=== PATIENT | female | born 1965 | race American Indian/Alaskan Native ===

== ENCOUNTER 2018-02-03 10:02 | Day surgery (SDC) | payer OTHER ==
[2018-01-21 00:26] VITALS: BMI 25.1
--- NOTE | 2018-02-03 12:01 | CP.SDSHP ---
Same Day Surgery H & P - History Proposed Procedure: COLONSCOPY Pre-Op Diagnosis: SEE NOTES - Previous Medical/Surgical History Cardiac: Hypertension Pulmonary: Asthma Misc: Other Pain: 2.Mild Pain - Allergies Allergies: Allergies No Known Allergies Allergy (Verified 02/03/18 10:30) - Physical Exam General Appearance: N Vital Signs: Vital Signs 02/03/18 02/03/18 10:20 10:38 Temperature 97.8 F Pulse Rate 80 80 Respiratory 20 Rate Blood Pressure 105/74 O2 Sat by Pulse 100 Oximetry Mental Status: Alert & Oriented x3 Neuro: WNL Heart: Other Lungs: Other GI: WNL - {Optional Preform as Required} Breast: WNL Abdomen: WNL Rectal: Other Integument: WNL : WNL Ortho: Other ENT: WNL - Impression Pt. Evaluated Today:Candidate for Anesthesia & Procedure: Yes - Date & Time Time: 12:00 Short Stay Discharge - Short Stay Discharge Admitting Diagnosis/Reason for Visit: SCREENING Disposition: HOME/ ROUTINE Referrals: Joellen Boone MD [Primary Care Provider] -
[2018-02-03] MEDS ORDERED: Midazolam 2 MG/2 ML VIAL ONE (12:04)
[2018-02-03] MEDS ORDERED: Propofol 10 mg/ml Inj (20 ML) ONE (12:04)
[2018-02-03] MEDS ORDERED: Glucagon Recombinant 1 mg Inj ONE (12:17)
[2018-02-03] MEDS ORDERED: Belladonna-Phenobarbital PO ONE (13:05)
[2018-02-03 14:31] VITALS: BP 110/67; PULSE 67; RESP 16; TEMP 97.1; O2SAT 100
== END 2018-02-03 14:15 | disposition home or self-care (01) ==
LOC: C.ENDO 10:02
PROVIDERS: ATTEND Specialist
DX: K58.9 Irritable bowel syndrome, unspecified (principal); K64.8 Other hemorrhoids; K64.4 Residual hemorrhoidal skin tags
CPT/HCPCS: 45380; 88305; J1610; J2250; J2704

== ENCOUNTER 2018-10-14 11:48 | Emergency (ER) | payer OTHER ==
[2018-10-14 12:06] VITALS: BMI 24.7
[2018-10-14 12:10] VITALS: TEMP 98.7; O2SAT 98
--- NOTE | 2018-10-14 12:35 | C.PDOC ---
History Of Present Illness 53 year old female, whose past medical history includes right kidney stones, presents to the ED for evaluation of right flank pain that has been intermittent for around 3 weeks. Patient states she was previously evaluated in [facility] for these symptoms. She did not undergo any imaging,but her urinalysis showed an "infection" and she was discharged with prescription for antibiotics. Patient's pain persisted so she went to her PMD for evaluation. At PMD's office, patient underwent an ultrasound which showed two stones in her right kidney and she was referred to follow-up with Dr. Demetrio Villegas. Patient went to Dr. Villegas's office earlier today, but his office was full and she was sent to the ED for immediate evaluation. Patient reports some nausea and states her abdomen appears bigger than usual. Patient admits to eating food around 1 hour prior to arrival. She denies fever, chills, vomiting, dysuria, hematuria. PMD: Dr. Zi Smith Urologist: Dr. Demetrio Villegas Time Seen by Provider: 10/14/18 12:10 Chief Complaint (Nursing): Female Genitourinary History Per: Patient History/Exam Limitations: no limitations Onset/Duration Of Symptoms: Intermittent Episodes, Other (around 3 weeks ) Current Symptoms Are (Timing): Still Present Quality Of Discomfort: "Pain" Associated Symptoms: Nausea. denies: Fever, Chills, Vomiting, Urinary Symptoms Additional History Per: Patient Abnormal Vaginal Bleeding: No Past Medical History Reviewed: Historical Data, Nursing Documentation, Vital Signs Vital Signs: Last Vital Signs Temp 98.7 F 10/14/18 12:04 Pulse 75 10/14/18 12:04 Resp 18 10/14/18 12:04 BP 129/85 10/14/18 12:04 Pulse Ox 98 10/14/18 12:04 - Medical History PMH: Asthma, HTN, Hypercholesterolemia, Hyperlipidemia, Kidney Stones, Chronic Kidney Disease (infection/stents) Surgical History: Appendectomy, Endoscopy Other Surgeries: hysterectomy - [facility] Procedures CYSTOSCOPY NEC (07/17/14) REMOV URETERAL DRAIN (07/23/14) URETERAL CATHETERIZATION (07/17/14) URETEROSCOPY (07/23/14) Family History: States: [place] (Mother in 40's) - Social History Hx Tobacco Use: Yes Hx Alcohol Use: No Hx Substance Use: No - Immunization History Hx Tetanus Toxoid Vaccination: Yes Hx Influenza Vaccination: Yes (05/2018) Hx Pneumococcal Vaccination: Yes Review Of Systems Constitutional: Negative for: Fever, Chills Gastrointestinal: Positive for: Nausea. Negative for: Vomiting Genitourinary: Negative for: Dysuria, Hematuria Musculoskeletal: Positive for: Other (right-sided flank pain ) Physical Exam - Physical Exam Appears: Non-toxic, No Acute Distress Skin: Normal Color, Warm, Dry Head: Atraumatic, Normacephalic Eye(s): bilateral: Normal Inspection Oral Mucosa: Moist Neck: Supple Chest: Symmetrical, No Deformity, No Tenderness Gastrointestinal/Abdominal: Soft, Tenderness (to right upper and lower quadrants on palpation ), Distention, No Guarding, No Rebound Back: CVA Tenderness (right-sided) Extremity: Normal ROM, Capillary Refill (less than 2 seconds ), No Other (edema ) Neurological/Psych: Oriented x3, Normal Speech, Normal Cognition ED Course And Treatment - Laboratory Results Result Diagrams: 10/14/18 12:40 10/14/18 12:40 O2 Sat by Pulse Oximetry: 98 (on RA) Pulse Ox Interpretation: Normal - Other Rad Abdomen XR X-Ray: Viewed By Me, Read By Radiologist Interpretation: Date of service: 10/14/2018. HISTORY: abd pain. COMPARISON: 07/27/2014. FINDINGS: BOWEL: Moderate stool retention present. No obstruction. No free air. The moderate gastric distention. 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 Transitional elements right L5 transverse process. OTHER FINDINGS: The few right hemipelvic calcifications are compatible with phleboliths the largest is 6 mm this is a dominant right posterior hemipelvic phleboliths per the same-day CT abdomen and pelvic exam. IMPRESSION: Moderate stool retention. The prior right double-J ureteral stent has been removed. The dominant right hemipelvic calcified phlebolith is unchanged. - CT Scan/US CT A/P Other Rad Studies (CT/US): Read By Radiologist, Radiology Report Reviewed CT/US Interpretation: PROCEDURE: CT Abdomen and Pelvis without Oral or IV contrast. HISTORY: abd pain. COMPARISON: CT abdomen and pelvis without contrast performed 07/17/14. TECHNIQUE: Contiguous axial images of the abdomen and pelvis. No oral or IV contrast administered. Coronal and Sagittal reformats generated and reviewed. Radiation dose: Total exam DLP = 637.08 mGy-cm. This CT exam was performed using one or more of the following dose reduction techniques: Automated exposure control, adjustment of the mA and/or kV according to patient size, and/or use of iterative reconstruction technique. FINDINGS: There is limited evaluation of the solid organs without the administration of IV contrast. LOWER THORAX: Mild bibasilar atelectasis. No visible consolidation, pleural effusion, or pneumothorax. LIVER: Unremarkable unenhanced appearance. GALLBLADDER AND BILE DUCTS: Unremarkable unenhanced appearance. PANCREAS: Unremarkable unenhanced appearance. SPLEEN: Unremarkable unenhanced appearance. ADRENALS: Unremarkable unenhanced appearance. KIDNEYS AND URETERS: No hydronephrosis or obstructing renal calculus. Nonobstructing right renal calculi. BLADDER: The urinary bladder appears unremarkable. REPRODUCTIVE: Uterus is absent consistent with hysterectomy. APPENDIX: The appendix is not identified. No secondary signs of acute appendicitis. BOWEL: Fluid, ingested debris, and air within the stomach. Lack of oral contrast limits evaluation for bowel pathology. The bowel loops appear within normal li mits of caliber without evidence of intestinal obstruction. Moderate diffuse constipation. PERITONEUM: No significant free fluid. No definite free air. LYMPH NODES: No bulky lymphadenopathy identified. VASCULATURE: Atherosclerotic calcifications of the aorta and branches. No aortic aneurysm. BONES: No acute osseous abnormality is detected. 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 IMPRESSION: Nonobstructing right renal calculi. No hydronephrosis. Hysterectomy. 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 Suggest consultation with urologist if indicated. Moderate diffuse constipation. Medical Decision Making Medical Decision Making: Impression: 53 year old female with right-sided flank pain Plan: * bloodwork * urinalysis * CT A/P * Abdomen XR * reassess and disposition Progress: Bloodwork, urinalysis, CT A/P, Abdomen XR ordered and reviewed. Disposition Counseled Patient/Family Regarding: Studies Performed, Diagnosis, Need For Followup, Rx Given - Disposition Referrals: Demetrio Villegas MD [Staff Provider] - Moustapha Raines MD [Staff Provider] - Disposition: HOME/ ROUTINE Disposition Time: 15:38 Condition: STABLE Prescriptions: Phosphate Enema [Fleet Enema 135 Ml] 30 ml RC DAILY #2 nma Polyethylene Glycol 3350 [Miralax] 17 gm PO DAILY #30 packet Wheat Dextrin [Benefiber] 1 each PO DAILY #30 powd.pack Instructions: Constipation, Adult (DC) Forms: [facility] ([place]), General Discharge Instructions - POA Present On Arrival: None - Clinical Impression Clinical Impression: Abdominal pain, Constipation - Scribe Statement The provider has reviewed the documentation as recorded by the Scribe (Michelle Robertson) Provider Attestation: All medical record entries made by the Scribe were at my direction and personally dictated by me. I have reviewed the chart and agree that the record accurately reflects my personal performance of the history, physical exam, medical decision making, and the department course for this patient. I have also personally directed, reviewed, and agree with the discharge instructions and disposition.
[2018-10-14 12:45] LABS: BASO % 0.5 % (0.0-2.0); EOS # 0.2 K/uL (0.0-0.7); EOS % 2.3 % (0.0-4.0); HEMOGLOBIN 11.5 g/dL (11.0-16.0); LYMPH # 2.8 K/uL (1.0-4.3); LYMPH % 34.1 % (20.0-40.0); MEAN CELL VOLUME 75.8 fL (81.0-99.0); MEAN CORPUSCULAR HEMOGLOBIN 24.3 pg (27.0-31.0); MEAN CORPUSCULAR HGB CONC 32.1 g/dL (33.0-37.0); MEAN PLATELET VOLUME 9.3 fL (7.2-11.7); MONO # 0.6 K/uL (0.0-0.8); MONO % 6.6 % (0.0-10.0); NEUT # 4.7 K/uL (1.8-7.0); NEUT % 56.5 % (50.0-75.0); RBC 4.72 Mil/uL (3.80-5.20); RED CELL DISTRIBUTION WIDTH 16.7 % (11.5-14.5); WHITE BLOOD COUNT 8.3 K/uL (4.8-10.8)
[2018-10-14 12:58] LABS: ALB/GLOB RATIO 1.5 (1.0-2.1); ALBUMIN 4.6 g/dL (3.5-5.0); ALT/SGPT 16 U/L (9-52); AST/SGOT 25 U/L (14-36); BLOOD UREA NITROGEN 17 mg/dL (7-17); CALCIUM 9.6 mg/dl (8.6-10.4); GFR NON-AFRICAN AMERICAN > 60; LIPASE 39 U/L (23-300)
[2018-10-14 13:39] LABS: SQUAMOUS EPITHIAL 17 /hpf (0-5); URINE BACTERIA RARE (<OCC); URINE BILIRUBIN NEGATIVE (NEGATIVE); URINE BLOOD NEGATIVE (NEGATIVE); URINE CLARITY Hazy (Clear); URINE COLOR Yellow (YELLOW); URINE GLUCOSE (UA) NORMAL (Normal); URINE LEUKOCYTE ESTERASE NEG Leu/uL (Negative); URINE PROTEIN NEGATIVE (NEGATIVE)
--- NOTE | 2018-10-14 13:53 | CT ---
PROCEDURE: CT Abdomen and Pelvis without Oral or IV contrast. HISTORY: abd pain COMPARISON: CT abdomen and pelvis without contrast performed 07/17/14 TECHNIQUE: Contiguous axial images of the abdomen and pelvis. No oral or IV contrast administered. Coronal and Sagittal reformats generated and reviewed. Radiation dose: Total exam DLP = 637.08 mGy-cm. This CT exam was performed using one or more of the following dose reduction techniques: Automated exposure control, adjustment of the mA and/or kV according to patient size, and/or use of iterative reconstruction technique. FINDINGS: There is limited evaluation of the solid organs without the administration of IV contrast. LOWER THORAX: Mild bibasilar atelectasis. No visible consolidation, pleural effusion, or pneumothorax. LIVER: Unremarkable unenhanced appearance. GALLBLADDER AND BILE DUCTS: Unremarkable unenhanced appearance. PANCREAS: Unremarkable unenhanced appearance. SPLEEN: Unremarkable unenhanced appearance. ADRENALS: Unremarkable unenhanced appearance. KIDNEYS AND URETERS: No hydronephrosis or obstructing renal calculus. Nonobstructing right renal calculi. BLADDER: The urinary bladder appears unremarkable. REPRODUCTIVE: Uterus is absent consistent with hysterectomy. APPENDIX: The appendix is not identified. No secondary signs of acute appendicitis. BOWEL: Fluid, ingested debris, and air within the stomach. Lack of oral contrast limits evaluation for bowel pathology. The bowel loops appear within normal limits of caliber without evidence of intestinal obstruction. Moderate diffuse constipation. PERITONEUM: No significant free fluid. No definite free air. LYMPH NODES: No bulky lymphadenopathy identified. VASCULATURE: Atherosclerotic calcifications of the aorta and branches. No aortic aneurysm. BONES: No acute osseous abnormality is detected. 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 IMPRESSION: Nonobstructing right renal calculi. No hydronephrosis. Hysterectomy. 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 Suggest consultation with urologist if indicated. Moderate diffuse constipation.
--- NOTE | 2018-10-14 14:22 | RAD ---
Date of service: 10/14/2018 HISTORY: abd pain COMPARISON: 07/27/2014 FINDINGS: BOWEL: Moderate stool retention present. No obstruction. No free air. The moderate gastric distention. 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 Transitional elements right L5 transverse process. OTHER FINDINGS: The few right hemipelvic calcifications are compatible with phleboliths the largest is 6 mm this is a dominant right posterior hemipelvic phleboliths per the same-day CT abdomen and pelvic exam. IMPRESSION: Moderate stool retention. The prior right double-J ureteral stent has been removed. The dominant right hemipelvic calcified phlebolith is unchanged.
[2018-10-14 14:31] VITALS: BP 148/92; PULSE 71; RESP 17
[2018-10-14] MEDS ORDERED: Magnesium Citrate Oral SOL (300 ml) PO ONE (15:35)
== END 2018-10-14 16:30 | disposition home or self-care (01) ==
LOC: C.ER 11:48
DX: K59.00 Constipation, unspecified (principal); R10.9 Unspecified abdominal pain